=== PATIENT | male | born 1960 | race Caucasian/White ===

== ENCOUNTER 2020-10-12 09:15 | Day surgery (SDC) | payer BC ==
[~2020-10-12 09:15] MED LIST: Acetaminophen 500 MG TAB ONE; diphenhydrAMINE 50 MG/ML VIAL ONE
[2020-10-12] MEDS ORDERED: CASIRIVIMAB 1,200 MG, IMDEVIMAB 1,200 MG in Sodium Chloride 0.9% 250 ML 250 ML IV SCH (10:00)
== END 2020-10-12 12:00 | disposition home or self-care (01) ==
LOC: CSHSDC/OP 09:15
PROVIDERS: ATTEND Internal Medicine
DX: Z23 Encounter for immunization (principal); U07.1 COVID-19
CPT/HCPCS: J1200; J7050